=== PATIENT | male | born 1965 ===

== ENCOUNTER 2025-04-08 14:45 | Emergency (ER) | payer MEDICARE, SELFPAY ==
--- NOTE | ~2025-04-08 | XR_ITS ---
CLINICAL HISTORY: knee pain 4 view right knee Comparison: None Findings: Bones intact. No dislocations. Moderately severe lateral compartment joint space narrowing. No joint effusion. No radiopaque foreign body. IMPRESSION: Moderately severe lateral compartment joint space narrowing. No fracture, malalignment or joint effusion This document has been electronically signed by: Tae Ritter MD on 04/08/2025 16:02:41
--- NOTE | ~2025-04-08 | XR_ITS ---
CLINICAL HISTORY: R hip pain 4 view, pelvis and right hip Comparison: None Findings: The bones are intact. Mild degenerative change at both hips. The soft tissues are unremarkable. IMPRESSION: No acute findings. Mild degenerative changes This document has been electronically signed by: Tae Ritter MD on 04/08/2025 16:01:41
--- NOTE | ~2025-04-08 | US_ITS ---
CLINICAL HISTORY: R calf pain Venous duplex ultrasound right lower extremity Comparison: None Findings: The visualized deep veins are fully compressible with normal Doppler color flow and spectral tracings. No popliteal cyst. IMPRESSION: 1. Negative for right lower extremity deep vein thrombosis. This document has been electronically signed by: Azul Peter MD on 04/08/2025 21:30:25
--- NOTE | 2025-04-08 15:22 | ED_ITS ---
HPI - Extremity Injury (Lower) General Chief Complaint: Extremity Injury, Lower Stated Complaint: r hip and leg pain Time Seen by Provider: 04/08/25 20:36 Source: patient Limitations: language barrier History of Present Illness ED Provider: Apurva Smith PA-C HPI Narrative: 59-year-old male status post right knee replacement 2 years ago in [place], presents with right knee and hip pain x2 days. Pain originates in right knee and radiates up to the hip. Worse with movement and ambulating. Patient denies new exercise, heavy lifting, trauma. Denies swelling, warmth or erythema of the knee. No fever. Related Data Previous Rx's ?Medication ?Instructions ?Recorded meloxicam 15 mg tablet 15 mg PO DAILY #7 tabs 04/08/25 methocarbamol 750 mg tablet 1,500 mg (2 x 750 mg) PO Q8H PRN 04/08/25 pain, moderate #20 tabs Allergies Allergy/AdvReac Type Severity Reaction Status Date / Time No Known Allergies Allergy Verified 04/08/25 15:24 Review of Systems Review of Systems: Yes all other systems are reviewed and are negative Constitutional: Constitutional: Denies fatigue and Denies fever(s) Cardiovascular: Cardiovascular: Denies chest pain and Denies dyspnea Respiratory: Respiratory: Denies dyspnea Gastrointestinal: Gastrointestinal: Denies abdominal pain Musculoskeletal: Musculoskeletal: Reports arthralgias and Denies joint swelling Integumentary/Breasts: Skin/Breast: Denies erythema Endocrine: Endocrine: Denies fatigue PMFSH Social History Social History Unable to assess alcohol history related to: Unknown Use of substances other than those prescribed or required for medical reasons: Unknown Advance Directives: No Advance Directives Information Provided: No Physical Exam Vital Signs: Vital Signs: Last Vital Signs Temp 97.8 F 04/08/25 23:11 Pulse 83 04/08/25 23:11 Resp 18 04/08/25 23:11 BP 171/82 H 04/08/25 23:11 Pulse Ox 100 04/08/25 23:11 O2 Del Method Room Air 04/08/25 23:11 BMI result Body Mass Index 38.8 Const: Other: Alert well-appearing Orientation/consciousness: patient oriented x3 Resp: Effort & Inspection: normal respiratory effort Cardio: Other: Normal peripheral perfusion Skin: Other: Warm dry no rash Neuro: General: patient oriented x3, gait normal, no focal motor deficits and CN's II-XI intact bilaterally Extrem: Other: No warmth or erythema of the left knee, able to flex and extend, antalgic gait Psych: Other: Cooperative Course Course Course Narrative: This is a Rapid Medical Exam performed in triage by Promise Kerr PA-C. Full HPI, ROS and PE to be performed by primary ED provider. 59 yo Estonian-speaking M presenting to the ED c/o R knee & hip pain x2 days. NO injury. PE: ambulating w/steady gait. + right knee with mild swelling. Tender to palpation. Right calf with tenderness. 1+ pitting edema bilaterally Plan: XR, ultrasound Medications Administered Discontinued Medications Generic Name Dose Route Start Last Admin Trade Name Freq PRN Reason Stop Dose Admin Acetaminophen 975 mg 04/08/25 20:37 04/08/25 20:43 Acetaminophen 325 Mg Tablet PO 04/08/25 20:38 975 mg ONCE ONE Administration Ibuprofen 600 mg 04/08/25 20:37 04/08/25 20:43 Ibuprofen 600 Mg Tablet PO 04/08/25 20:38 600 mg ONCE ONE Administration Medical Decision Making Medical Decision Making [facility] Narrative: 59-year-old male status post right knee replacement 2 years ago in [place], presents with right knee and hip pain x2 days. Pain originates in right knee and radiates up to the hip. Worse with movement and ambulating. Patient denies new exercise, heavy lifting, trauma. Denies swelling, warmth or erythema of the knee. No fever. Problem: Prior knee surgery History: Per patient I have considered the following differential diagnoses: Arthritis, septic art hritis/effusion, fracture, dislocation, strain, DVT Plan: X-rays of the hip and knee ordered from triage as well as a DVT study, no clot, the patient has significant arthritic changes. We will send with home care instructions, orthopedic consult for potential joint injection and pain medications. We will place in a knee immobilizer and send with crutches. I have independently reviewed the following tests: X-ray right knee: Findings: Bones intact. No dislocations. Moderately severe lateral compartment joint space narrowing. No joint effusion. No radiopaque foreign body. IMPRESSION: Moderately severe lateral compartment joint space narrowing. No fracture, malalignment or joint effusion X-ray right hip:Findings: The bones are intact. Mild degenerative change at both hips. The soft tissues are unremarkable. IMPRESSION: No acute findings. Mild degenerative changes US DVT study: IMPRESSION: 1. Negative for right lower extremity deep vein thrombosis. Discharge Plan Discharge Clinical Impression: Osteoarthritis, Joint pain Patient Disposition: Home, Self-Care Instructions: Osteoarthritis (ED), Arthralgia (ED) Additional Instructions: The x-rays of the hip and the knee revealed significant arthritis. The ultrasound revealed no clot. See home care instructions. Use the knee immobilizer and crutches as needed for your comfort, bear weight as tolerated. Take the meloxicam as directed this is an anti-inflammatory, take it with food. Use the methocarbamol as needed for further pain, this is a muscle relaxant. To note this medication will cause drowsiness, do not drive or operate machinery while taking the medication. I am providing you with a contact for our orthopedic service, I will call to make an appointment, you may benefit from a cortisone injection. Prescriptions: New meloxicam 15 mg tablet 15 mg PO DAILY Qty: 7 0RF methocarbamol 750 mg tablet 1,500 mg PO Q8H PRN (Reason: pain, moderate) Qty: 20 0RF Referrals: Sandor Martin MD [Physician] - (Significant arthritis right knee, status post knee replacement years ago, sending for potential cortisone injection) Print Language: Estonian
[2025-04-08 15:23] VITALS: BP 123/66; PULSE 88; RESP 18; TEMP 36.2; O2SAT 100; BMI 38.8
[2025-04-08 20:36] VITALS: BP 185/81; PULSE 73; RESP 16; TEMP 36.7; O2SAT 100
[2025-04-08] MEDS: Ibuprofen 600 MG TABLET PO (20:43)
[2025-04-08] MEDS: Acetaminophen 325 MG TABLET 975 MG PO (20:43)
[2025-04-08 23:11] VITALS: BP 171/82; PULSE 83; RESP 18; TEMP 36.6; O2SAT 100
[2025-04-08] MEDS: methocarbamoL 750 MG TABLET 1500 MG PO (23:19)
[2025-04-08] MEDS: Ketorolac Tromethamine 15 MG/ML VIAL IM (23:20)
[2025-04-08 23:39] VITALS: BP 171/82; PULSE 83; RESP 18; TEMP 36.6; O2SAT 100
--- NOTE | 2025-04-08 23:39 | PC.NURSE ---
knee immobilizer applied to right knee. patient educated on use of crutches. pt tolerated well.
== END 2025-04-08 23:41 | disposition home or self-care (01) ==
PROVIDERS: Emergency Provider Emergency Medicine
DX: M17.11 Unilateral primary osteoarthritis, right knee (principal); M25.551 Pain in right hip; M25.561 Pain in right knee; M79.661 Pain in right lower leg
CPT/HCPCS: 73502; 73562; 93971; 96372; 99284; J1885

== ENCOUNTER → 2025-04-08 15:25 | Outpatient (BNV) | payer MEDICARE, SELFPAY | PROVIDERS: Visit Provider Radiology Vascular & Interventional Radiology | DX: M79.661 Pain in right lower leg (principal); M25.551 Pain in right hip; M17.11 Unilateral primary osteoarthritis, right knee | CPT/HCPCS: 73502; 73562 ==